=== PATIENT | female | born 1935 | race Caucasian/White ===

== ENCOUNTER → 2020-12-18 | Outpatient (CLI) | payer MEDICARE, OTHER | LOC: RAD 14:54 | PROVIDERS: ATTEND Internal Medicine Infectious Disease | DX: S91.201A Unspecified open wound of right great toe with damage to nail, initial encounter (principal) ==

== ENCOUNTER 2020-12-29 09:34 | Outpatient (RCR) | payer MEDICARE, OTHER ==
[~2020-12-29 09:34] MED LIST: COLLAGENASE OINTMENT 30 GM TUBE ONE; LIDOCAINE VISC 2% SOLN 15 ML UDC ONE; MUPIROCIN 2% OINT 22 GM TUBE ONE
== END 2021-01-10 ==
LOC: WCC 09:34
PROVIDERS: ATTEND Internal Medicine Infectious Disease
DX: I70.235 Atherosclerosis of native arteries of right leg with ulceration of other part of foot (principal); Y83.8 Other surgical procedures as the cause of abnormal reaction of the patient, or of later complication, without mention of misadventure at the time of the procedure; L97.519 Non-pressure chronic ulcer of other part of right foot with unspecified severity; I87.9 Disorder of vein, unspecified; I10 Essential (primary) hypertension; M13.80 Other specified arthritis, unspecified site; B96.89 Other specified bacterial agents as the cause of diseases classified elsewhere; E03.9 Hypothyroidism, unspecified; Z01.810 Encounter for preprocedural cardiovascular examination; Z01.811 Encounter for preprocedural respiratory examination